=== PATIENT | male | born 1955 | race Caucasian/White ===

== ENCOUNTER 2016-03-22 13:10 | Inpatient (IN) | payer MEDICARE, OTHER ==
[~2016-03-22] VITALS: Ht 172.7 cm; Wt 103.0 kg
[2016-03-22] MEDS ORDERED: ONDANSETRON 4 MG INJ IV STA (14:00)
[2016-03-22] MEDS ORDERED: ASPIRIN 325 MG TAB PO STA (14:00)
[2016-03-22] MEDS ORDERED: morphine 4 MG/ML VIAL IV STA (14:00)
[2016-03-22] MEDS ORDERED: METOPROLOL 5 MG INJ IV STA (14:00)
[2016-03-22] MEDS ORDERED: NITROGLYCERIN 2% 1 GM OINT PKT TD STA (14:00)
[2016-03-22] MEDS ORDERED: IBUP-1542 PO (14:09)
[2016-03-22] MEDS ORDERED: AMIT25TA9 PO (14:10)
[2016-03-22] MEDS ORDERED: GLIM4TAB PO (14:10)
[2016-03-22] MEDS ORDERED: ASPI325T32 PO (14:10)
[2016-03-22] MEDS ORDERED: FURO20TA3 PO (14:11)
[2016-03-22] MEDS ORDERED: FOLI-49 PO (14:13)
[2016-03-22] MEDS ORDERED: FENO145T19 PO (14:28)
[2016-03-22] MEDS ORDERED: NOVO3I SC (14:29)
[2016-03-22] MEDS ORDERED: METF500T4 PO (14:29)
[2016-03-22] MEDS ORDERED: DICL100G37 TOP (14:30)
[2016-03-22] MEDS ORDERED: ZOLP10TA5 PO (14:30)
[2016-03-22] MEDS ORDERED: INSU200I4 SQ (14:31)
--- NOTE | 2016-03-22 14:32 | RADRPT ---
PROCEDURE: XR Chest. CLINICAL INDICATION: Chest pain TECHNIQUE: Single portable view of the chest was obtained COMPARISON: None FINDINGS: There is mild cardiomegaly. The thoracic aorta is calcified. There is mild pulmonary vascular congestion. There are bilateral perihilar and lower lobe infiltrat es. There is no pleural effusion.. There is no pneumothorax. The bones and soft tissues are unremarkable. RPTAT: AA IMPRESSION: Mild cardiomegaly with pulmonary vascular congestion. .Angel Jimenez MD, Date Time Electronically viewed and signed by .Angel Jimenez MD, on 03/22/2016 14:32 .S/
[2016-03-22] MEDS ORDERED: ALBU18HF INHALATION (14:33)
[2016-03-22] MEDS ORDERED: CRES10 PO (14:34)
[2016-03-22 14:35] LABS: BASOPHILS % 0.5 % (0.0-2.0); EOSINOPHILS # 0.1 10^3/ul (0.0-0.5); EOSINOPHILS % 2.1 % (0.0-7.0); HEMATOCRIT 35.4 % (42.0-52.0); HEMOGLOBIN 11.9 g/dl (14.0-18.0); LYMPHOCYTES # 1.3 10^3/ul (0.8-2.9); LYMPHOCYTES % 18.4 % (15.0-51.0); MEAN CORPUSCULAR HEMOGLOBIN 29.1 pg (29.0-33.0); MEAN CORPUSCULAR HGB CONC 33.7 g/dl (32.0-37.0); MEAN CORPUSCULAR VOLUME 86.5 fl (82.0-101.0); MEAN PLATELET VOLUME 10.4 fl (7.4-10.4); MONOCYTE # 0.5 10^3/ul (0.3-0.9); MONOCYTES % 6.7 % (0.0-11.0); NEUTROPHIL # 5.1 10^3/ul (1.6-7.5); NEUTROPHILS % 72.3 % (39.0-77.0); PLATELET COUNT 223 10^3/UL (140-440); RED BLOOD COUNT 4.09 10^6/ul (4.70-6.10); RED CELL DISTRIBUTION WIDTH 13.1 % (11.5-14.5)
[2016-03-22] MEDS ORDERED: ADV25050 INHALATION (14:35)
[2016-03-22] MEDS ORDERED: ESOM40CA PO (14:35)
[2016-03-22] MEDS ORDERED: OLME1TAB33 PO (14:35)
[2016-03-22 14:36] LABS: CONDITION 1
[2016-03-22 14:40] LABS: INR 1.02; POTASSIUM 3.9 mmol/L (3.5-5.1); PROTIME 13.4 Sec (12.2-14.2)
[2016-03-22 14:41] LABS: PARTIAL THROMBOPLASTIN TIME 31.1 Sec (25.0-35.0)
[2016-03-22 14:42] LABS: CREATININE 0.84 mg/dl (0.61-1.24)
[2016-03-22 14:55] LABS: TROPONIN-I 0.023 ng/ml (0.00-0.12)
--- NOTE | 2016-03-22 16:14 | ERA ---
ER Documentation Chief Complaint Date/Time DATE: 03/22/16 TIME: 16:11 Chief Complaint high bp at home this am, also c/o cp and sob HPI She is a 60-year-old male who reports intermittent chest pain since yesterday. He describes as a chest pressure with shortness of breath and nausea. He says that the chest pain happens whenever he walks and then goes away when he sits down. The pain lasts for about 10 minutes at a time. He says it has also been relieved when he takes a sublingual nitroglycerin. He denies any fever, coughing, congestion, sore throat, or otalgia. He denies any nausea, vomiting, abdominal pain, diarrhea, swelling of his extremities, or recent travel. In the remainder of the systems are negative. ROS All systems reviewed and are negative except as per history of present illness. Medications Home Meds Reported Medications Esomeprazole Mag Trihydrate (Nexium) 40 Mg Capsule.dr, 40 MG PO DAILY, #30 CAP 03/22/16 Robluwijjz-Daiussqtpl-MBEC (Tribenzor) 40-5-25 Mg Tablet, 1 TAB PO DAILY, TAB 03/22/16 Salmeterol Xinaf/Fluticasone* (Advair*) 250-50 Diskus Inhaler, 1 INH INHALATION BID, #1 INHALER 03/22/16 Rosuvastatin Calcium* (Crestor*) 10 Mg Tablet, 10 MG PO QHS, #30 TAB 03/22/16 Albuterol Sulfate* (Ventolin HFA*) 18 Gm Hfa.aer.ad, 2 PUFF INHALATION Q6H Y for WHEEZING AND SOB, #1 INHALER 03/22/16 Insulin Degludec (Tresiba Flextouch U-200) 200 Unit/1 Ml Insuln.pen, 70 UNIT SQ QPM 03/22/16 Zolpidem Tartrate* (Zolpidem Tartrate*) 10 Mg Tablet, 10 MG PO QHS Y for INSOMNIA, #30 TAB 03/22/16 Diclofenac Sodium* (Voltaren* Gel) 1% -100 Gm Gel, 1 APPLIC TOP BID, #1 TUB 03/22/16 Insulin Aspart* (Novolog Insulin Pen*) 100 Unit/Ml Soln, 10 UNIT SC AC MEALS, EA 03/22/16 Metformin* (Glucophage*) 500 Mg Tab, 500 MG PO TID, #30 TAB 03/22/16 Fenofibrate Nanocrystallized* (Fenofibrate*) 145 Mg Tablet, 145 MG PO DAILY, TAB 03/22/16 Folic Acid* (Folic Acid*) 1 Mg Tablet, 1 MG PO DAILY, TAB 03/22/16 Furosemide* (Furosemide*) 20 Mg Tablet, 20 MG PO DAILY, #60 TAB 03/22/16 Aspirin* (Aspirin* EC) 325 Mg Tab, 325 MG PO DAILY, TAB 03/22/16 Glimepiride* (Glimepiride*) 4 Mg Tablet, 4 MG PO DAILY, TAB 03/22/16 Amitriptyline Hcl* (Amitriptyline Hcl*) 25 Mg Tablet, 25 MG PO QHS, #30 TAB 03/22/16 Ibuprofen* (Ibuprofen*) 600 Mg Tablet, 600 MG PO Q8 Y for PAIN, TAB 03/22/16 Allergies Allergies: Coded Allergies: No Known Drug Allergy (Verified Allergy, Unknown, 03/22/16) PMhx/Soc Hx Cardiac Disorders: Yes ("CARDIAC PROBLEMS", HTN) Hx Miscellaneous Medical Probl: Yes (DM) Hx Alcohol Use: No Hx Substance Use: No Hx Tobacco Use: No Smoking Status: Never smoker FmHx Family History: coronary disease Physical Exam Vitals Vital Signs Date Time Temp Pulse Resp B/P Pulse Ox O2 Delivery O2 Flow Rate FiO2 03/22/16 15:00 97.6 68 20 153/92 100 Nasal Cannula 2.0 03/22/16 14:03 Nasal Cannula 2 03/22/16 13:51 97.6 63 20 154/84 100 Nasal Cannula 2.0 03/22/16 13:31 97.6 60 20 127/61 100 Physical Exam Const: Well-developed well-nourished male sitting on the bed in no acute distress Head: Atraumatic normocephalic Eyes: Normal Conjunctiva ENT: Normal External Ears, Nose and Mouth. Neck: Full range of motion..~ No meningismus. Resp: Clear to auscultation bilaterally Cardio: Regular rate and rhythm, no murmurs no tenderness to palpation of the chest wall Abd: Soft, non tender, non distended. Normal bowel sounds Skin: No petechiae or rashes Back: No midline or flank tenderness Ext: No cyanosis, or edema Neur: Awake and alert oriented 3 Psych: Normal Mood and Affect Result Diagram: 03/22/16 1400 03/22/16 1400 Results 24 hrs Laboratory Tests Test 03/22/16 14:00 Activated Partial Thromboplast Time 31.1Sec Anion Gap 17 Basophils # 0.010^3/ul Basophils % 0.5% Blood Urea Nitrogen 17mg/dl Calcium Level 9.0mg/dl Carbon Dioxide Level 28mmol/L Chloride Level 106mmol/L Creatinine 0.84mg/dl Eosinophils # 0.110^3/ul Eosinophils % 2.1% Glucose Level 109mg/dl Hematocrit 35.4% Hemoglobin 11.9g/dl INR International Normalized Ratio 1.02 Lymphocytes # 1.310^3/ul Lymphocytes % 18.4% Mean Corpuscular Hemoglobin 29.1pg Mean Corpuscular Hemoglobin Concent 33.7g/dl Mean Corpuscular Volume 86.5fl Mean Platelet Volume 10.4fl Monocytes # 0.510^3/ul Monocytes % 6.7% Neutrophils # 5.110^3/ul Neutrophils % 72.3% Nucleated Red Blood Cells # 0.010^3/ul Nucleated Red Blood Cells % 0.0/100WBC Platelet Count 03320^3/UL Potassium Level 3.9mmol/L Prothrombin Time 13.4Sec Prothrombin Time Ratio 1.0 Red Blood Count 4.0910^6/ul Red Cell Distribution Width 13.1% Sodium Level 147mmol/L Troponin I 0.023ng/ml White Blood Count 7.010^3/ul Current Medications Medications (Trade) Dose Ordered Sig/Sneha Route PRN Reason Start Time Stop Time Status Last Admin Dose Admin Aspirin (Aspirin) 325 mg ONCE STAT PO 03/22/16 14:00 03/22/16 14:02 DC 03/22/16 14:16 Nitroglycerin (Nitroglycerin 2% Oint) 1 inch ONCE STAT TD 03/22/16 14:00 03/22/16 14:02 DC 03/22/16 14:16 Morphine Sulfate (morphine) 4 mg ONCE STAT IV 03/22/16 14:00 03/22/16 14:02 DC 03/22/16 14:16 Ondansetron HCl (Zofran Inj) 4 mg ONCE STAT IV 03/22/16 14:00 1/12/17 14:03 DC 03/22/16 14:15 Metoprolol Tartrate (Lopressor) 5 mg ONCE STAT IV 03/22/16 14:00 03/22/16 14:03 DC 03/22/16 14:15 Procedures/MDM Medical decision making: Unstable angina, myocardial ischemia, chest wall pain, pneumonia, bronchitis EKG: Rate/Rhythm: Normal sinus rhythm at 65 bpm, T-wave inversion noted in the inferior lateral leads, no old EKG available for comparison QRS, ST, T-waves: No changes consistent w/ acute ischemia Impression: No evidence of ischemia or arrhythmia 1616: Patient feels much improved after the Nitropaste and morphine. At this time he is not experiencing any chest pain. I have spoken with the patient's primary care physician about admitting him to the hospital for further evaluation and treatment of his possible unstable angina. The patient and his son are aware of the admission as well. Departure Diagnosis: Primary Impression: Unstable angina Additional Impressions: Coronary artery disease Qualified Code: I25.110 - Coronary artery disease involving [place] coronary artery of [place] heart with unstable angina pectoris Hypertension Qualified Code: I10 - Essential hypertension Abnormal EKG Condition: BHAVANA Cunningham Mar 22, 2016 16:14
[2016-03-22] MEDS ORDERED: ONDANSETRON 4 MG INJ IV PRN ×2 (16:30→20:00)
[2016-03-22] MEDS ORDERED: ACETAMINOPHEN 325 MG TAB PO PRN ×2 (16:30→19:30)
[2016-03-22 19:00] VITALS: TEMP 97.9
[2016-03-22] MEDS ORDERED: morphine 2 MG INJ IV PRN (19:30)
--- NOTE | 2016-03-22 19:31 | HP ---
Date/Time of Note Date/Time of Note DATE: 03/22/16 TIME: 19:30 Assessment/Plan VTE Prophylaxis VTE Prophylaxis Intervention: ambulation, anti-embolic stocking VTE Contraindication Reason: peripheral vascular disease Lines/Catheters IV Catheter Type (from Nrsg): [place] [employer] line still needed: No Urinary Cath still in place: No Reason Cath still needed: urinary retention Assessment/Plan Chief Complaint/Hosp Course 1. Chest pain - Rule out [place]. 2. CHF exacerbation. 3. COPD exacerbation. 4. DM type 2. 5. Hypertension. 6.S/P CABG 7.Anemia of chronic disease 8.BPH 9.Anxiety, Depression. 10.Obesity with snoring. 11.Dyslipidemia 12.YEMI with pain. 13,forgetfulness. Problems: Assessment/Plan BP controlled. Mi was r/o. BS out of control. Cont'd Hospitalization Reason: compleate initial w/u. If no acute changes: w/u as outpatient. HPI/ROS Admit Date/Time Admit Date/Time Worsening of sob with uncontrolled HTN. BP reached 240/120 level.Says he took medications. ROS Subjective hx not possible: pt critical Constitutional: chills, diaphoresis, fatigue, improved, nausea, poor po, weight change, No disoriented, No febrile, No no complaints, No other Eyes: visual change, No discharge, No no complaints, No other, No pain, No redness ENT: congestion, sore throat, No bleeding, No discharge, No dysphagia, No no complaints, No other, No pain Respiratory: pain, pleuritic pain, shortness of breath, No cough, No no complaints, No other, No sputum, No wheezing Cardiovascular: chest pain, edema, lightheadedness, orthopenea, palpitations, paroxysmal nocturnal dyspnea, No no complaints, No other Gastrointestinal: constipation, decreased appetite, flatus, pain, passing stool , No blood, No diarrhea, No nausea, No no complaints, No other, No vomiting Genitourinary: dysuria, No bleeding, No discharge, No flank pain, No hematuria, No no complaints, No other Musculoskeletal: back pain, bone/joint pain, neck pain, No no complaints, No other, No restricted range of motion, No swelling Skin: pruritis, rash, No bruising, No erythema, No laceration, No no complaints, No other, No skin lesions Neurologic: dizziness, headache Endocrine: dry skin, weight change, No no complaints, No other, No polydypsia, No polyuria, No temp intolerance Lymphatic: No adenopathy, No lymphadema, No no complaints, No other, No tender nodes Psychological: anxiety, depression, No confusion, No nl mood/affect, No no complaints, No other, No suicidal Immunologic: pruritis, rhinitis, No immunodeficiency, No no complaints, No other, No urticaria PMH/Family/Social Past Medical History Medical History: angina, congestive heart failure, coronary artery disease, diabetes, diverticulitis, GERD, GI bleed, high cholesterol, hypertension, pancreatitis, urinary tract infection Past Surgical History Past Surgical Hx: angioplasty, coronary bypass surgery Family History Significant Family History: asthma, COPD, diabetes, hypertension Social History Alcohol Use: sober Smoking Status: Former smoker Drug Use: none Exam/Review of Systems Vital Signs Vitals Vital Signs Date Time Temp Pulse Resp B/P Pulse Ox O2 Delivery O2 Flow Rate FiO2 03/22/16 17:00 97.9 73 19 132/87 100 Nasal Cannula 2.0 Exam Constitutional: alert, oriented, No distress, No frail, No non-verbal, No other, No well developed Psych: anxiety, depression, No confusion, No nl mood/affect, No no complaints, No other, No suicidal Head: atraumatic, No hematomas, No lacerations, No normocephalic, No other Eyes: EOMI, PERRL, nl lids, No fundi, disc, No icteric, No nl conjunctiva, No nl sclera, No other ENMT: mucosa pink and moist (pale and dry.), nl lips & teeth, No intubated, No nl external ears & nose, No nl nasal mucosa & septum, No other, No tympanic membranes Neck: bruits, jvd, nuchal rigidity, No masses, No non-tender, No other, No supple, No thyromegaly Respiratory: congested cough, intercostal retraction, labored breathing, No clear to auscultation, No crackles/rales, No diminished breath sounds, No normal air movement, No other, No respirations, No tactile fremitus, No wheezing Cardiovascular: bruits, edema, jugular venous distention (JVD), systolic murmur Gastrointestinal: bowel sounds, distended, nl liver, spleen, No ascites, No firm, No hepatomegaly, No mass, No non-tender, No other, No rebound or guarding, No soft, No splenomegaly, No surgical scars, No tender Genitourinary - Male: CVA tenderness, nl penis, nl scrotum Genitourinary - Female: CVA tenderness, No CMT, No nl adnexae, No nl external genitalia, No other, No uterus Musculoskeletal: joint tenderness, muscle tone, muscle weakness, No nl extremities to inspection, No nl gait and stance, No other, No range of motion, No spine non-tender, No swelling Extremities: calf tenderness, edema, No clubbing, No cyanosis, No normal pulses, No other, No palpable cord, No pitting pedal edema, No tenderness Neurological: [employer] II-XII intact, DTR's symmetric, lethargic, numbness, reflexes , No confused, No focal weakness, No nl mental status, No nl speech, No nl strength, No other, No unresponsive Skin: diaphoresis, nl turgor, No ecchymosis, No laceration, No other, No puncture, No rash or lesions Lymph: nl lymph nodes Labs Result Diagram: 03/22/16 1400 03/22/16 1400 CAITLYN GIANG MD Mar 22, 2016 19:31
[2016-03-22] MEDS ORDERED: ZOLPIDEM 5 MG TAB PO PRN (20:00)
[2016-03-22 20:03] LABS: IRON 71 ug/dl (35-150)
[2016-03-22 20:12] LABS: TOTAL IRON BINDING CAPACITY 337 ug/dl (241-421)
[2016-03-22 20:34] LABS: CK-MB 1.75 ng/ml (0.0-2.4)
[2016-03-22 20:35] VITALS: BP 162/79; PULSE 74; RESP 20; Ht 172.7 cm; Wt 103.0 kg
[2016-03-22 20:35] LABS: TROPONIN-I 0.025 ng/ml (0.00-0.12)
[2016-03-22 20:44] LABS: CHOL/HDL RATIO 6.3 RATIO; MAGNESIUM 1.6 mg/dl (1.7-2.5)
[2016-03-22 20:58] VITALS: BP 162/79; RESP 20
[2016-03-22] MEDS ORDERED: ATORVASTATIN 40 MG TAB PO SCH (21:00)
[2016-03-22] MEDS: INSULIN ASPART [NOVOLOG] 3 ML PEN SC SCH (21:00)
[2016-03-22 21:13] VITALS: PULSE 72
[2016-03-22 21:15] LABS: THYROID STIMULATING HORMONE 2.84 MIU/L (0.465-4.680)
[2016-03-22] MEDS: LOSARTAN 50 MG TAB PO SCH (21:51)
[2016-03-22] MEDS: METOPROLOL 25 MG TAB PO SCH (21:51)
[2016-03-22] MEDS: PANTOPRAZOLE 40 MG INJ IV SCH (21:52)
[2016-03-22 23:53] VITALS: BP 187/85; RESP 20
[2016-03-23] VITALS (9 sets, daily range): BP systolic 143–185; BP diastolic 65–90; PULSE 72–79; RESP 17–20
[2016-03-23] MEDS ORDERED: CLONIDINE 0.2 MG/24 HR PATCH TRANSDERM ONE
[2016-03-23] MEDS ORDERED: METOPROLOL 25 MG TAB PO ONE (00:15)
[2016-03-23] MEDS ORDERED: LORAZEPAM 1 MG TAB PO SCH (00:15)
[2016-03-23 03:53] LABS: TROPONIN-I 0.025 ng/ml (0.00-0.12)
[2016-03-23 03:56] LABS: CK-MB 1.39 ng/ml (0.0-2.4)
[2016-03-23] MEDS ORDERED: DEXTROSE 50% 50 ML SYRINGE IV PRN ×2 (07:30)
[2016-03-23] MEDS ORDERED: GLUCAGON 1 MG INJ IM PRN (07:30)
[2016-03-23] MEDS ORDERED: GLUCOSE GEL 15 GRAM TUBE BUCCAL PRN (07:30)
[2016-03-23] MEDS ORDERED: GLUCOSE GEL 15 GRAM TUBE PO PRN ×2 (07:30)
[2016-03-23 07:57] LABS: BASOPHILS % 0.6 % (0.0-2.0); EOSINOPHILS # 0.2 10^3/ul (0.0-0.5); EOSINOPHILS % 2.1 % (0.0-7.0); HEMATOCRIT 33.9 % (42.0-52.0); HEMOGLOBIN 11.5 g/dl (14.0-18.0); LYMPHOCYTES # 1.4 10^3/ul (0.8-2.9); LYMPHOCYTES % 18.2 % (15.0-51.0); MEAN CORPUSCULAR HEMOGLOBIN 29.4 pg (29.0-33.0); MEAN CORPUSCULAR VOLUME 86.6 fl (82.0-101.0); MEAN PLATELET VOLUME 10.1 fl (7.4-10.4); MONOCYTE # 0.5 10^3/ul (0.3-0.9); MONOCYTES % 7.1 % (0.0-11.0); NEUTROPHIL # 5.4 10^3/ul (1.6-7.5); PLATELET COUNT 201 10^3/UL (140-440); RED BLOOD COUNT 3.92 10^6/ul (4.70-6.10); RED CELL DISTRIBUTION WIDTH 13.1 % (11.5-14.5); UNCORRECTED WBC 7.5 10^3/ul (4.8-10.8); WHITE BLOOD COUNT 7.5 10^3/ul (4.8-10.8)
[2016-03-23 08:00] LABS: CREATININE 0.89 mg/dl (0.61-1.24)
[2016-03-23 08:01] LABS: CALCIUM 8.7 mg/dl (8.4-10.2)
[2016-03-23 08:15] LABS: CONDITION 1
[2016-03-23] MEDS: IPRATROPIUM (NEB) 0.5 MG/2.5 ML AMP HHN SCH ×2 (08:41→13:33)
[2016-03-23] MEDS: ALBUTEROL 0.083% (NEB) 2.5 MG/3 ML AMP HHN SCH ×2 (08:41→13:33)
[2016-03-23] MEDS ORDERED: MAGNESIUM SULFATE 2 GM/50 ML 50 ML IVPB ONE (09:00)
[2016-03-23] MEDS ORDERED: AMLODIPINE 5 MG TAB PO SCH (09:00)
[2016-03-23] MEDS ORDERED: SPIRONOLACTONE 25 MG TAB PO SCH (09:00)
[2016-03-23] MEDS ORDERED: ASPIRIN 81 MG TAB PO SCH (09:00)
[2016-03-23] MEDS: INSULIN ASPART [NOVOLOG] 3 ML PEN SC SCH ×2 (09:20→12:44)
[2016-03-23] MEDS: PANTOPRAZOLE 40 MG INJ IV SCH (09:21)
[2016-03-23] MEDS: METOPROLOL 25 MG TAB PO SCH (09:23)
[2016-03-23] MEDS: LOSARTAN 50 MG TAB PO SCH (09:24)
--- NOTE | 2016-03-23 10:07 | PDOCDIS ---
Discharge Instructions CONDITION Patient Condition: Fair HOME CARE INSTRUCTIONS: Special Diet: controlled carbohydrates diet ACTIVITY: Activity Restrictions: Slowly Increase Activity Avoid heavy lifting Avoid Heavy Housework No Weight Bearing Bathing Restrictions: Tub Bath FOLLOW UP/APPOINTMENTS Appointments F/U to in 5 days. CAITLYN GIANG MD Mar 23, 2016 10:07
--- NOTE | 2016-03-23 10:14 | DS ---
Date/Time of Note Date/Time of Note DATE: 03/23/16 TIME: 10:13 Discharge Summary Admission/Discharge Info Admit Date/Time Mar 22, 2016 at 16:25 Discharge Date/Time Final Diagnosis 1. Chest pain. 2. CHF exacerbation. 3. COPD exacerbation. 4. DM type 2. 5. Hypertension. Patient Condition: Fair Hospital Course 1. Chest pain - Rule out [place]. 2. CHF exacerbation. 3. COPD exacerbation. 4. DM type 2. 5. Hypertension. Home Meds Reported Medications Esomeprazole Mag Trihydrate (Nexium) 40 Mg Capsule.dr, 40 MG PO DAILY, #30 CAP 03/22/16 Eswcgjxvls-Kvhqwcwlee-VMOQ (Tribenzor) 40-5-25 Mg Tablet, 1 TAB PO DAILY, TAB 03/22/16 Salmeterol Xinaf/Fluticasone* (Advair*) 250-50 Diskus Inhaler, 1 INH INHALATION BID, #1 INHALER 03/22/16 Rosuvastatin Calcium* (Crestor*) 10 Mg Tablet, 10 MG PO QHS, #30 TAB 03/22/16 Albuterol Sulfate* (Ventolin HFA*) 18 Gm Hfa.aer.ad, 2 PUFF INHALATION Q6H Y for WHEEZING AND SOB, #1 INHALER 03/22/16 Insulin Degludec (Tresiba Flextouch U-200) 200 Unit/1 Ml Insuln.pen, 70 UNIT SQ QPM 03/22/16 Zolpidem Tartrate* (Zolpidem Tartrate*) 10 Mg Tablet, 10 MG PO QHS Y for INSOMNIA, #30 TAB 03/22/16 Diclofenac Sodium* (Voltaren* Gel) 1% -100 Gm Gel, 1 APPLIC TOP BID, #1 TUB 03/22/16 Insulin Aspart* (Novolog Insulin Pen*) 100 Unit/Ml Soln, 10 UNIT SC AC MEALS, EA 03/22/16 Metformin* (Glucophage*) 500 Mg Tab, 500 MG PO TID, #30 TAB 03/22/16 Fenofibrate Nanocrystallized* (Fenofibrate*) 145 Mg Tablet, 145 MG PO DAILY, TAB 03/22/16 Folic Acid* (Folic Acid*) 1 Mg Tablet, 1 MG PO DAILY, TAB 03/22/16 Furosemide* (Furosemide*) 20 Mg Tablet, 20 MG PO DAILY, #60 TAB 03/22/16 Aspirin* (Aspirin* EC) 325 Mg Tab, 325 MG PO DAILY, TAB 03/22/16 Glimepiride* (Glimepiride*) 4 Mg Tablet, 4 MG PO DAILY, TAB 03/22/16 Amitriptyline Hcl* (Amitriptyline Hcl*) 25 Mg Tablet, 25 MG PO QHS, #30 TAB 03/22/16 Ibuprofen* (Ibuprofen*) 600 Mg Tablet, 600 MG PO Q8 Y for PAIN, TAB 03/22/16 Follow-up Plan F/U to in 5 days. Pending Labs Laboratory Tests Test 03/22/16 14:00 03/22/16 19:51 03/22/16 21:49 03/23/16 03:11 Activated Partial Thromboplast Time 31.1Sec (25.0-35.0) Anion Gap 17 (8-16) Basophils # 0.010^3/ul (0.0-0.1) Basophils % 0.5% (0.0-2.0) Blood Urea Nitrogen 17mg/dl (7-20) Calcium Level 9.0mg/dl (8.4-10.2) Carbon Dioxide Level 28mmol/L (21-31) Chloride Level 106mmol/L (97-110) Creatinine 0.84mg/dl (0.61-1.24) Eosinophils # 0.110^3/ul (0.0-0.5) Eosinophils % 2.1% (0.0-7.0) Glucose Level 109mg/dl (70-220) Hematocrit 35.4% (42.0-52.0) Hemoglobin 11.9g/dl (14.0-18.0) INR International Normalized Ratio 1.02 Iron Level 71ug/dl (35-150) Lymphocytes # 1.310^3/ul (0.8-2.9) Lymphocytes % 18.4% (15.0-51.0) Mean Corpuscular Hemoglobin 29.1pg (29.0-33.0) Mean Corpuscular Hemoglobin Concent 33.7g/dl (32.0-37.0) Mean Corpuscular Volume 86.5fl (82.0-101.0) Mean Platelet Volume 10.4fl (7.4-10.4) Monocytes # 0.510^3/ul (0.3-0.9) Monocytes % 6.7% (0.0-11.0) Neutrophils # 5.110^3/ul (1.6-7.5) Neutrophils % 72.3% (39.0-77.0) Nucleated Red Blood Cells # 0.010^3/ul (0.0-0.0) Nucleated Red Blood Cells % 0.0/100WBC (0.0-0.0) Percent Iron Saturation 21% SAT (22-52) Platelet Count 00191^3/UL (140-440) Potassium Level 3.9mmol/L (3.5-5.1) Prothrombin Time 13.4Sec (12.2-14.2) Prothrombin Time Ratio 1.0 Red Blood Count 4.0910^6/ul (4.70-6.10) Red Cell Distribution Width 13.1% (11.5-14.5) Sodium Level 147mmol/L (135-144) Total Iron Binding Capacity 337ug/dl (241-421) Troponin I 0.023ng/ml (0.00-0.12) 0.025ng/ml (0.00-0.12) 0.025ng/ml (0.00-0.12) White Blood Count 7.010^3/ul (4.8-10.8) B-Type Natriuretic Peptide 880PG/ML (0-125) Cholesterol Level 158mg/dl (100-200) Cholesterol/HDL Ratio 6.3RATIO Creatine Kinase 80IU/L (23-200) 97IU/L (23-200) Creatine Kinase Index 2.2 1.4 Creatinine Kinase MB (Mass) 1.75ng/ml (0.0-2.4) 1.39ng/ml (0.0-2.4) HDL Cholesterol 25mg/dl (30-78) LDL Cholesterol, Calculated 103mg/dl Magnesium Level 1.6mg/dl (1.7-2.5) Thyroid Stimulating Hormone (TSH) 2.840MIU/L (0.465-4.680) Triglycerides Level 152mg/dl (0-149) Bedside Glucose 85mg/dL (70-220) Test 03/23/16 07:00 03/23/16 07:57 Anion Gap 19 (8-16) Basophils # 0.010^3/ul (0.0-0.1) Basophils % 0.6% (0.0-2.0) Blood Urea Nitrogen 17mg/dl (7-20) Calcium Level 8.7mg/dl (8.4-10.2) Carbon Dioxide Level 28mmol/L (21-31) Chloride Level 104mmol/L (97-110) Creatinine 0.89mg/dl (0.61-1.24) Eosinophils # 0.210^3/ul (0.0-0.5) Eosinophils % 2.1% (0.0-7.0) Glucose Level 139mg/dl (70-220) Hematocrit 33.9% (42.0-52.0) Hemoglobin 11.5g/dl (14.0-18.0) Lymphocytes # 1.410^3/ul (0.8-2.9) Lymphocytes % 18.2% (15.0-51.0) Mean Corpuscular Hemoglobin 29.4pg (29.0-33.0) Mean Corpuscular Hemoglobin Concent 34.0g/dl (32.0-37.0) Mean Corpuscular Volume 86.6fl (82.0-101.0) Mean Platelet Volume 10.1fl (7.4-10.4) Monocytes # 0.510^3/ul (0.3-0.9) Monocytes % 7.1% (0.0-11.0) Neutrophils # 5.410^3/ul (1.6-7.5) Neutrophils % 72.0% (39.0-77.0) Nucleated Red Blood Cells # 0.010^3/ul (0.0-0.0) Nucleated Red Blood Cells % 0.0/100WBC (0.0-0.0) Platelet Count 77474^3/UL (140-440) Potassium Level 4.0mmol/L (3.5-5.1) Red Blood Count 3.9210^6/ul (4.70-6.10) Red Cell Distribution Width 13.1% (11.5-14.5) Sodium Level 147mmol/L (135-144) White Blood Count 7.510^3/ul (4.8-10.8) Bedside Glucose 168mg/dL (70-220) CAITLYN GIANG MD Mar 23, 2016 10:14
[2016-03-30] MEDS ORDERED: CLONIDINE 0.2 MG/24 HR PATCH TRANSDERM SCH
== END 2016-03-23 16:41 | disposition home or self-care (01) | DRG 292 ==
LOC: E/R 13:10 → TEL 16:25
PROVIDERS: ADMIT Family Medicine; ATTEND Family Medicine
DX: I50.9 Heart failure, unspecified (principal); J44.1 Chronic obstructive pulmonary disease with (acute) exacerbation; I10 Essential (primary) hypertension; E11.9 Type 2 diabetes mellitus without complications; D53.9 Nutritional anemia, unspecified; E78.5 Hyperlipidemia, unspecified; R07.9 Chest pain, unspecified; F41.9 Anxiety disorder, unspecified; E66.8 Other obesity; Z68.34 Body mass index [BMI] 34.0-34.9, adult
CPT/HCPCS: 36415; 71010; 80048; 80061; 82550; 82553; 82962; 83540; 83735; 83880; 84443; 84484; 85025; 85610; 85730; 93005; 94640; 94664; 96374; 96375; C9113; J1815; J2270; J2405; J3475

== ENCOUNTER 2016-12-08 00:23 | Emergency (ER) | payer MEDICARE, OTHER ==
[~2016-12-08] VITALS: Ht 170.2 cm; Wt 102.5 kg
[~2016-12-08 00:23] MED LIST: ADV25050 INHALATION; ALBU18HF INHALATION; AMIT25TA9 PO; ASPI325T32 PO; CRES10 PO; DICL100G37 TOP; ESOM40CA PO; FENO145T19 PO; FOLI-49 PO; FURO20TA3 PO; GLIM4TAB PO; IBUP-1542 PO; INSU200I4 SQ; METF500T4 PO; NOVO3I SC; OLME1TAB33 PO; ZOLP10TA5 PO
[2016-12-08 00:27] VITALS: Ht 170.2 cm; Wt 102.5 kg
[2016-12-08] MEDS: LABETALOL HCL 20MG INJ IV ONE ×2 (01:00→01:28)
[2016-12-08 01:04] LABS: BASOPHILS % 0.5 % (0.0-2.0); EOSINOPHILS # 0.1 10^3/ul (0.0-0.5); EOSINOPHILS % 1.7 % (0.0-7.0); HEMATOCRIT 32.6 % (42.0-52.0); HEMOGLOBIN 10.5 g/dl (14.0-18.0); LYMPHOCYTES # 1.2 10^3/ul (0.8-2.9); LYMPHOCYTES % 18.5 % (15.0-51.0); MEAN CORPUSCULAR HEMOGLOBIN 28.6 pg (29.0-33.0); MEAN CORPUSCULAR HGB CONC 32.2 g/dl (32.0-37.0); MEAN CORPUSCULAR VOLUME 88.8 fl (82.0-101.0); MONOCYTE # 0.5 10^3/ul (0.3-0.9); MONOCYTES % 7.8 % (0.0-11.0); NEUTROPHIL # 4.7 10^3/ul (1.6-7.5); NEUTROPHILS % 71.2 % (39.0-77.0); PLATELET COUNT 204 10^3/UL (140-415); RED BLOOD COUNT 3.67 10^6/ul (4.70-6.10); RED CELL DISTRIBUTION WIDTH 13.2 % (11.5-14.5); WHITE BLOOD COUNT 6.7 10^3/ul (4.8-10.8)
[2016-12-08 01:24] LABS: CALCIUM 9.7 mg/dl (8.4-10.2); CREATININE 0.98 mg/dl (0.61-1.24)
--- NOTE | 2016-12-08 01:32 | RADRPT ---
PROCEDURE: XR Chest. CLINICAL INDICATION: Chest pain. TECHNIQUE: Single frontal view of the chest. COMPARISON: Chest dated 03/22/2016 FINDINGS: Cardiomegaly. Mild pulmonary vascular congestion with mild bibasilar atelectasis versus airspace dis ease. These findings are decreased over the interval.. No signs of pleural fluid or pneumothorax are seen. The osseous structures and soft tissues are unremarkable. IMPRESSION: Decreased mild failure. RPTAT: [facility] Physician Tracey Date Time Electronically viewed and signed by Physician Tracey on 12/08/2016 01:32 RS/
[2016-12-08 01:35] LABS: TROPONIN-I 0.018 ng/ml (0.00-0.12)
[2016-12-08] MEDS ORDERED: LABETALOL HCL 20MG INJ IV ONE (03:00)
[2016-12-08] MEDS ORDERED: AMLODIPINE 10 MG TAB PO ONE (03:00)
[2016-12-08] MEDS ORDERED: AMLO-147 PO (03:29)
[2016-12-08 03:54] VITALS: BP 154/84; PULSE 81; RESP 18; TEMP 98.5
--- NOTE | 2016-12-08 03:57 | ERD ---
ER Documentation Chief Complaint Date/Time DATE: 12/08/16 TIME: 03:51 Chief Complaint hypertension, short of breath, hx- htn w/ bp meds HPI This 61-year-old male with multiple risk factors for acute coronary syndrome comes in saying that he has some shortness of breath and his blood pressure is extremely high at home. He has been taking his home blood pressure medications including hydralazine as normal. He denies any chest pain whatsoever. He is has no nausea or vomiting. He otherwise feels well. States that he does have carotid stenosis. Denies any headache or neurological symptoms. ROS All systems reviewed and are negative except as per history of present illness. Medications Home Meds Active Scripts Amlodipine Besylate* (Amlodipine Besylate*) 10 Mg Tablet, 10 MG PO DAILY, #30 TAB Prov:CLEMENTSHEYKRISHNA PRINGLE 12/08/16 Reported Medications Esomeprazole Mag Trihydrate (Nexium) 40 Mg Capsule.dr, 40 MG PO DAILY, #30 CAP 03/22/16 Mnzbwqyoos-Bsivjpwgdi-FFKZ (Tribenzor) 40-5-25 Mg Tablet, 1 TAB PO DAILY, TAB 03/22/16 Salmeterol Xinaf/Fluticasone* (Advair*) 250-50 Diskus Inhaler, 1 INH INHALATION BID, #1 INHALER 03/22/16 Rosuvastatin Calcium* (Crestor*) 10 Mg Tablet, 10 MG PO QHS, #30 TAB 03/22/16 Albuterol Sulfate* (Ventolin HFA*) 18 Gm Hfa.aer.ad, 2 PUFF INHALATION Q6H Y for WHEEZING AND SOB, #1 INHALER 03/22/16 Insulin Degludec (Tresiba Flextouch U-200) 200 Unit/1 Ml Insuln.pen, 70 UNIT SQ QPM 03/22/16 Zolpidem Tartrate* (Zolpidem Tartrate*) 10 Mg Tablet, 10 MG PO QHS Y for INSOMNIA, #30 TAB 03/22/16 Diclofenac Sodium* (Voltaren* Gel) 1% -100 Gm Gel, 1 APPLIC TOP BID, #1 TUB 03/22/16 Insulin Aspart* (Novolog Insulin Pen*) 100 Unit/Ml Soln, 10 UNIT SC AC MEALS, EA 03/22/16 Metformin* (Glucophage*) 500 Mg Tab, 500 MG PO TID, #30 TAB 03/22/16 Fenofibrate Nanocrystallized* (Fenofibrate*) 145 Mg Tablet, 145 MG PO DAILY, TAB 03/22/16 Folic Acid* (Folic Acid*) 1 Mg Tablet, 1 MG PO DAILY, TAB 03/22/16 Furosemide* (Furosemide*) 20 Mg Tablet, 20 MG PO DAILY, #60 TAB 03/22/16 Aspirin* (Aspirin* EC) 325 Mg Tab, 325 MG PO DAILY, TAB 03/22/16 Glimepiride* (Glimepiride*) 4 Mg Tablet, 4 MG PO DAILY, TAB 03/22/16 Amitriptyline Hcl* (Amitriptyline Hcl*) 25 Mg Tablet, 25 MG PO QHS, #30 TAB 03/22/16 Ibuprofen* (Ibuprofen*) 600 Mg Tablet, 600 MG PO Q8 Y for PAIN, TAB 03/22/16 Allergies Allergies: Coded Allergies: No Known Drug Allergy (Verified Allergy, Unknown, 03/22/16) PMhx/Soc History of Surgery: Yes (CABG) Anesthesia Reaction: No Hx Neurological Disorder: No Hx Respiratory Disorders: No Hx Cardiac Disorders: Yes (CAD) Hx Psychiatric Problems: No Hx Miscellaneous Medical Probl: Yes (HTN) Hx Alcohol Use: No Hx Substance Use: No Hx Tobacco Use: No Smoking Status: Never smoker Physical Exam Vitals Vital Signs Date Time Temp Pulse Resp B/P Pulse Ox O2 Delivery O2 Flow Rate FiO2 12/08/16 01:40 98.5 88 18 198/91 97 Room Air 12/08/16 01:16 98.5 98 20 146/89 97 Room Air 12/08/16 00:27 98.5 91 20 253/116 97 Physical Exam Const: [] No distress Head: Atraumatic Eyes: Normal Conjunctiva ENT: Normal External Ears, Nose and Mouth. Neck: Full range of motion..~ No meningismus. Resp: Clear to auscultation bilaterally Cardio: Regular rate and rhythm, no murmurs Abd: Soft, non tender, non distended. Normal bowel sounds Skin: No petechiae or rashes Back: No midline or flank tenderness Ext: No cyanosis, distal pulses intact all 4 extremities Neur: Awake and alert oriented 3, no focal deficits Psych: Normal Mood and Affect Result Diagram: 12/08/169 12/08/169 Results 24 hrs Laboratory Tests Test 12/08/16 00:49 White Blood Count 6.710^3/ul Red Blood Count 3.6710^6/ul Hemoglobin 10.5g/dl Hematocrit 32.6% Mean Corpuscular Volume 88.8fl Mean Corpuscular Hemoglobin 28.6pg Mean Corpuscular Hemoglobin Concent 32.2g/dl Red Cell Distribution Width 13.2% Platelet Count 31254^3/UL Mean Platelet Volume 12.0fl Neutrophils % 71.2% Lymphocytes % 18.5% Monocytes % 7.8% Eosinophils % 1.7% Basophils % 0.5% Nucleated Red Blood Cells % 0.0/100WBC Neutrophils # 4.710^3/ul Lymphocytes # 1.210^3/ul Monocytes # 0.510^3/ul Eosinophils # 0.110^3/ul Basophils # 0.010^3/ul Nucleated Red Blood Cells # 0.010^3/ul Sodium Level 141mmol/L Potassium Level 4.0mmol/L Chloride Level 107mmol/L Carbon Dioxide Level 26mmol/L Anion Gap 12 Blood Urea Nitrogen 18mg/dl Creatinine 0.98mg/dl Glucose Level 228mg/dl Calcium Level 9.7mg/dl Troponin I 0.018ng/ml B-Type Natriuretic Peptide 1130PG/ML Current Medications Medications (Trade) Dose Ordered Sig/Sneha Route PRN Reason Start Time Stop Time Status Last Admin Dose Admin Labetalol HCl (Labetalol) 20 mg ONCE ONCE IV 12/08/16 01:00 12/08/16 01:01 DC 12/08/16 01:00 Hydralazine HCl (Apresoline) 50 mg ONCE ONCE PO 12/08/16 03:00 12/08/16 03:01 DC 12/08/16 02:56 Amlodipine Besylate (Norvasc) 10 mg ONCE ONCE PO 12/08/16 03:00 12/08/16 03:01 DC 12/08/16 02:56 Labetalol HCl (Labetalol) 40 mg ONCE ONCE IV 12/08/16 03:00 12/08/16 03:01 DC 12/08/16 03:27 Procedures/MDM Patient with [id number] hypertension multiple risk factors for acute coronary syndrome. Negative troponin and EKG unchanged from prior. I reviewed his EKG from his last visit for unstable angina and he had inverted T waves in the inferolateral leads and still continues to do so. He was given labetalol 20 mg then 40 mg in order to lower his blood pressure adequately. I also gave him in a hydralazine tab and amlodipine pill after he stated that he did not want to stay. I offered admission and even advised it. He does not want to stay in the hospital as he has absolutely no symptoms and feels well. His family supports his decision. Therefore I am imploring him to see his physician first thing on Saturday where he has an appointment or not and keep a blood pressure journal. I discharged him with amlodipine tablets in addition to his regular blood pressure medication. EKG interpretation #1: Normal sinus rhythm rate of 69, normal axis, inverted T waves in for lateral leads, normal intervals. EKG interpretation #2: Normal sinus rhythm rate of 60, normal axis, T-wave inversions in inferolateral leads, normal intervals. Monitor interpretation: Normal sinus rhythm without arrhythmia Chest x-ray interpretation: Mild pulmonary vascular engorgement without any pulmonary edema, no infiltrates, no pneumothorax, no fractures. According to radiology read the mild heart failure is decreased from prior x-ray. Care time greater than 35 minutes: This includes billable procedures but does include multiple vasoactive medications to lower dangerously high blood pressure in a patient with 90% carotid stenosis, multiple discussion with the patient including trying to advise admission, review of chart, discussion with family. Repeat physical exams. Departure Diagnosis: Primary Impression: Hypertensive crisis Additional Impression: Dyspnea Condition: Fair Patient Instructions: Hypertension, Established, Out Of Control Additional Instructions: Call your primary care doctor TOMORROW for a SAME-DAY APPOINTMENT.Tell the loan secretary that you were referred from this facility.Call again if your condition worsens before your appointment time.[id number] SHEY VAUGHAN DO Dec 08, 2016 03:57
== END 2016-12-08 03:56 | disposition home or self-care (01) ==
LOC: E/R 00:23
DX: I16.9 Hypertensive crisis, unspecified (principal); R06.00 Dyspnea, unspecified; I25.10 Atherosclerotic heart disease of native coronary artery without angina pectoris; E11.9 Type 2 diabetes mellitus without complications; Z79.4 Long term (current) use of insulin; Z79.82 Long term (current) use of aspirin; Z98.61 Coronary angioplasty status
CPT/HCPCS: 36415; 71010; 80048; 83880; 84484; 85025; 93005; 96374; 96376